=== PATIENT | male | born 1975 | race Caucasian/White ===

== ENCOUNTER → 2021-07-11 | Outpatient (CLI) | payer OTHER ==
--- NOTE | 2021-07-11 14:12 | DIREP ---
PROCEDURE:CHEST 2 VIEWS COMPARISON:None. INDICATIONS:HISTORY PHYSICAL EVAL. FINDINGS: LUNGS/PLEURA:No significant pulmonary parenchymal abnormalities. No effusions. VASCULATURE:Normal. Unremarkable pulmonary vasculature. CARDIAC:Normal. No cardiac silhouette abnormality or cardiomegaly. MEDIASTINUM:Normal. No visible mass or adenopathy. BONES:Normal, except for plate and screw fixation of the left clavicle. No fracture or visible bony lesion. OTHER:Negative. CONCLUSION:No acute cardiopulmonary disease. Dictated by: Gatito Araujo M.D. on 07/11/2021 at 02:06 PM
--- NOTE | 2021-07-11 14:15 | DIREP ---
PROCEDURE:XRAY SINUSES PARANASAL<3 VWS, 4 images COMPARISON:None. INDICATIONS:HISTORY PHYSICAL EVAL. TECHNIQUE: 4 images of the paranasal sinuses were obtained FINDINGS: MAXILLARY:Normal. No mucosal thickening or fluid level. ETHMOID:Normal. No mucosal thickening or fluid level. FRONTAL:Normal. No mucosal thickening or fluid level. SPHENOID:Normal. No mucosal thickening or fluid level. OTHER:Negative. CONCLUSION:No inflammatory changes. No fracture. Dictated by: Gatito Araujo M.D. on 07/11/2021 at 02:11 PM
== END | disposition home or self-care (01) ==
LOC: RAD 12:00
PROVIDERS: ATTEND Nurse Practitioner
DX: Z00.00 Encounter for general adult medical examination without abnormal findings (principal)
CPT/HCPCS: 70220; 71046

== ENCOUNTER → 2021-11-15 | Outpatient (CLI) | payer OTHER ==
--- NOTE | 2021-11-15 15:51 | DIREP ---
PROCEDURE:CHEST 2 VIEWS COMPARISON:[facility], CR, XRAY CHEST 2 VWS, 07/11/2021, 12:12 PM. INDICATIONS:Z00.00 HISTORY AND PHYSICAL EVALUATION FINDINGS: LUNGS/PLEURA:Mild hyperaeration. No infiltrate or pleural effusion. CARDIAC:Normal cardiac silhouette and normal pulmonary vascularity. MEDIASTINUM:Normal. BONES:Left distal clavicular plate and screw fixation. OTHER:No additional findings. CONCLUSION:No acute cardiopulmonary process or significant change. Dictated by: Annelise Moy MD on 11/15/2021 at 03:48 PM
== END | disposition home or self-care (01) ==
LOC: RAD 15:06
PROVIDERS: ATTEND Nurse Practitioner
DX: Z00.00 Encounter for general adult medical examination without abnormal findings (principal)
CPT/HCPCS: 71046